=== PATIENT | female | born 1990 | race Two or more races ===

== ENCOUNTER 2024-08-04 22:42 | Outpatient (CLI) | payer OTHER ==
[~2024-08-04] VITALS: Ht 157.5 cm; Wt 65.3 kg
[2024-08-04 20:57] VITALS: BP 100/64
[2024-08-04] MEDS ORDERED: RINGERS SOLUTION,LACTATED 1,000 ML IV SCH (22:45)
[2024-08-04] MEDS ORDERED: PRENATAL TABLE1 EAC4 PO (23:23)
[2024-08-04 23:35] VITALS: BP 104/65
[2024-08-04 23:58] LABS: URINE APPEARANCE Clear; URINE BILIRRUBIN Negative (NEGATIVE); URINE BLOOD Moderate; URINE COLOR Yellow; URINE GLUCOSE Negative (NEGATIVE); URINE KETONE Negative (NEGATIVE); URINE LEUKOCYTE Moderate; URINE NITRATE Positive; URINE PROTEIN Negative (NEGATIVE)
[2024-08-04 23:58] LABS: HEMOGLOBIN 11.4 g/dL (12.0-15.00); MEAN CELL VOLUME 88.2 fL (80.00-100.00); MEAN CORPUSCULAR HEMOGLOBIN 30.6 pg (27.00-32.0); MEAN CORPUSCULAR HGB CONC 34.7 g/dl (32.0-36.0); PLATELET COUNT 227 K/uL (150-450); RED BLOOD COUNT 3.74 M/uL (4.00-6.00); RED CELL DISTRIBUTION WIDTH 14.1 % (11.5-14.5)
[2024-08-05 00:02] LABS: URINE BACTERIA 903.2 uL (0.0-1933); URINE EPITHELIAL CELLS 5.4 uL (0.0-38.8); URINE RBC 264.1 uL (0.0-20.8); URINE WBC 584.8 uL (0.0-23.2)
[2024-08-05 00:45] LABS: URINE CAST 0.15 uL (0.0-1.40)
[2024-08-05] MEDS ORDERED: CEFAZOLIN SODIUM 1,000 MG VIAL ONE (00:50)
[2024-08-05] MEDS ORDERED: CEFAZOLIN SODIUM 1,000 MG VIAL IV ONE (01:30)
[2024-08-05 03:14] VITALS: BP 90/63
[2024-08-05 06:10] VITALS: BP 97/62; O2SAT 100
[2024-08-05] MEDS ORDERED: CEFAZOLIN SODIUM 1,000 MG VIAL IV SCH (08:00)
[2024-08-05 11:13] VITALS: BP 98/58; O2SAT 100
[2024-08-05 15:07] VITALS: BP 131/73
[2024-08-05 15:30] VITALS: BP 131/73
== END 2024-08-05 15:30 | disposition home or self-care (01) ==
LOC: OBS/DEL 22:42
PROVIDERS: Obstetrics & Gynecology; ATTEND Obstetrics & Gynecology
DX: O23.43 Unspecified infection of urinary tract in pregnancy, third trimester (principal); N39.0 Urinary tract infection, site not specified; O26.849 Uterine size-date discrepancy, unspecified trimester; O36.8199 Decreased fetal movements, unspecified trimester, other fetus; O26.859 Spotting complicating pregnancy, unspecified trimester; Z3A.29 29 weeks gestation of pregnancy

== ENCOUNTER 2024-08-28 13:09 | Outpatient (CLI) | payer OTHER ==
[~2024-08-28 13:09] MED LIST: PRENATAL TABLE1 EAC4 PO
== END 2024-08-28 13:13 | disposition home or self-care (01) ==
LOC: PRENATAL 13:09
PROVIDERS: ATTEND Obstetrics & Gynecology Maternal & Fetal Medicine
DX: O26.849 Uterine size-date discrepancy, unspecified trimester (principal); O36.8199 Decreased fetal movements, unspecified trimester, other fetus; Z3A.33 33 weeks gestation of pregnancy

== ENCOUNTER → 2024-09-19 13:17 | Outpatient (CLI) | payer OTHER | END | disposition home or self-care (01) | LOC: PRENATAL 13:17 | PROVIDERS: ATTEND Obstetrics & Gynecology Maternal & Fetal Medicine | DX: O26.849 Uterine size-date discrepancy, unspecified trimester (principal); O36.8199 Decreased fetal movements, unspecified trimester, other fetus; O36.5990 Maternal care for other known or suspected poor fetal growth, unspecified trimester, not applicable or unspecified; Z3A.34 34 weeks gestation of pregnancy ==

== ENCOUNTER 2024-10-04 03:36 | Inpatient (IN) | payer OTHER ==
[~2024-10-04] VITALS: Ht 157.5 cm; Wt 72.6 kg
[2024-10-04 03:07] VITALS: BP 124/79
[2024-10-04] MEDS ORDERED: PRENATAL CAPLE1 EAC1 PO (03:41)
[2024-10-04] MEDS ORDERED: CEFAZOLIN SODIUM 2,000 MG IV SCH (03:45)
[2024-10-04] MEDS ORDERED: RINGERS SOLUTION,LACTATED 1,000 ML IV SCH ×2 (03:45→09:15)
[2024-10-04 04:34] LABS: PH,URINE 6.5 (5.0-8.0); URINE APPEARANCE Clear; URINE BILIRRUBIN Negative (NEGATIVE); URINE BLOOD Negative; URINE COLOR Yellow; URINE GLUCOSE Negative (NEGATIVE); URINE KETONE Negative (NEGATIVE); URINE LEUKOCYTE Negative; URINE NITRATE Negative; URINE PROTEIN Negative (NEGATIVE)
[2024-10-04 04:38] LABS: URINE BACTERIA 273.4 uL (0.0-1933); URINE EPITHELIAL CELLS 19.7 uL (0.0-38.8); URINE WBC 9.2 uL (0.0-23.2)
[2024-10-04 04:40] LABS: HEMATOCRIT 34.5 % (36.0-45.00); HEMOGLOBIN 12.2 g/dL (12.0-15.00); MEAN CORPUSCULAR HEMOGLOBIN 31.1 pg (27.00-32.0); MEAN CORPUSCULAR HGB CONC 35.3 g/dl (32.0-36.0); PLATELET COUNT 184 K/uL (150-450); RED BLOOD COUNT 3.92 M/uL (4.00-6.00)
[2024-10-04 04:45] LABS: URINE RBC 0.6 uL (0.0-20.8)
[2024-10-04 05:04] LABS: INR < 0.93; PARTIAL THROMBOPLASTIN TIME 27.3 SECONDS (22.0-34.0); PROTHROMBIN TIME 10.2 SECONDS (9.0-11.5)
[2024-10-04 05:14] LABS: ALBUMIN 2.6 gm/dL (3.4-5.0); BILIRUBIN TOTAL 0.22 mg/dL (0.3-1.2); CALCIUM 8.3 mg/dL (8.5-10.1); CREATININE SERUM 0.36 mg/dL (0.55-1.02); GFR 208.89; POTASSIUM 3.16 mEq/L (3.5-5.1); TOTAL PROTEIN 5.6 gm/dL (6.4-8.2)
[2024-10-04] MEDS ORDERED: CEFAZOLIN SODIUM 1,000 MG VIAL IV SCH (06:00)
[2024-10-04 06:10] VITALS: BP 118/69; O2SAT 98
[2024-10-04] MEDS ORDERED: TERBUTALINE SULFATE 1 MG/ML AMPUL SUBCUTANEO ONE (06:15)
[2024-10-04] MEDS ORDERED: KETOROLAC TROMETHAMINE 60 MG VIAL IM STA (09:09)
[2024-10-04] MEDS ORDERED: PROMETHAZINE HCL 25 MG/ML AMPUL IM PRN (09:15)
[2024-10-04] MEDS ORDERED: MEPERIDINE HCL/PF 50 MG/ML VIAL IM PRN (09:15)
[2024-10-04] MEDS ORDERED: CHLORHEXIDINE GLUCONATE 120 ML BOTTLE TOP ONE (09:15)
[2024-10-04] MEDS ORDERED: OXYTOCIN 1,000 ML IV SCH (09:15)
[2024-10-04] MEDS ORDERED: MORPHINE SULFATE 4 MG/ML VIAL IV ONE ×2 (10:45→11:45)
[2024-10-04 13:44] VITALS: BP 131/82
[2024-10-04 15:01] LABS: HEMATOCRIT 37.2 % (36.0-45.00); HEMOGLOBIN 12.8 g/dL (12.0-15.00); MEAN CELL VOLUME 87.9 fL (80.00-100.00); MEAN CORPUSCULAR HEMOGLOBIN 30.1 pg (27.00-32.0); MEAN CORPUSCULAR HGB CONC 34.3 g/dl (32.0-36.0); PLATELET COUNT 178 K/uL (150-450); RED BLOOD COUNT 4.24 M/uL (4.00-6.00); RED CELL DISTRIBUTION WIDTH 14.2 % (11.5-14.5)
[2024-10-04 16:55] VITALS: BP 140/80
[2024-10-04 20:54] VITALS: BP 126/80
[2024-10-05] VITALS: BP 115/75
[2024-10-05 08:41] VITALS: BP 114/74
[2024-10-05] MEDS ORDERED: OxyCODONE HCL/APAP UD (PERCOCET) PO PRN (09:00)
[2024-10-05 16:00] VITALS: BP 139/86
[2024-10-05 23:42] VITALS: BP 105/69; BP 118/82
[2024-10-06 08:00] VITALS: BP 126/85
[2024-10-06 16:30] VITALS: BP 138/88
[2024-10-07] VITALS: BP 140/75
[2024-10-07 07:50] VITALS: BP 130/83
== END 2024-10-07 14:48 | DRG 785 ==
LOC: LDR → O/R 03:36 → OB/GYN 03:36 → O/R 07:33 → OB/GYN 13:40
PROVIDERS: ADMIT Obstetrics & Gynecology; ATTEND Obstetrics & Gynecology
PROC: 0UB70ZZ Excision of Bilateral Fallopian Tubes, Open Approach (ICD-10-PCS; 2024-10-04)
PROC: 4A1HXCZ Monitoring of Products of Conception, Cardiac Rate, External Approach (ICD-10-PCS; 2024-10-04)
PROC: 10D00Z1 Extraction of Products of Conception, Low, Open Approach (ICD-10-PCS; principal; 2024-10-04 09:45)
DX: O34.211 Maternal care for low transverse scar from previous cesarean delivery (principal); Z30.2 Encounter for sterilization; Z20.822 Contact with and (suspected) exposure to COVID-19; Z37.0 Single live birth